=== PATIENT | male | born 1970 | race Caucasian/White ===

== ENCOUNTER → 2019-07-18 | Outpatient (CLI) | payer BC ==
[~2019-07-18] MED LIST: Flomax0.4 MG PO; HYDMOR2 PO; KETO10 PO; PRED20 PO; Percocet 5-3251 EACH PO
[2019-07-18 19:51] LABS: C-REACTIVE PROTEIN, EXT RANGE <0.290 mg/dL (0.000-0.300)
== END | disposition home or self-care (01) ==
LOC: LAB SHORT 17:52 → LAB 17:52
PROVIDERS: Nurse Practitioner Family
DX: M25.571 Pain in right ankle and joints of right foot (principal)
CPT/HCPCS: 84550; 85651; 86140

== ENCOUNTER 2021-06-19 09:10 | Day surgery (SDC) | payer BC ==
[~2021-06-19] VITALS: Ht 177.8 cm; Wt 110.2 kg
[~2021-06-19 09:10] MED LIST changes: +MULVITA; +Voltaren100 GM TOP
== END 2021-06-19 10:47 | disposition home or self-care (01) ==
LOC: ORSCSDS 09:10
PROVIDERS: Surgery
PROC: 0DBM8ZX Excision of Descending Colon, Via Natural or Artificial Opening Endoscopic, Diagnostic (ICD-10-PCS; principal; 2021-06-19 10:15)
PROC: 0DBN8ZX Excision of Sigmoid Colon, Via Natural or Artificial Opening Endoscopic, Diagnostic (ICD-10-PCS; principal; 2021-06-19 10:15)
DX: Z12.11 Encounter for screening for malignant neoplasm of colon (principal); D12.4 Benign neoplasm of descending colon; D12.5 Benign neoplasm of sigmoid colon; G47.33 Obstructive sleep apnea (adult) (pediatric); I10 Essential (primary) hypertension; F17.210 Nicotine dependence, cigarettes, uncomplicated; F41.9 Anxiety disorder, unspecified; E66.9 Obesity, unspecified; Z68.34 Body mass index [BMI] 34.0-34.9, adult
CPT/HCPCS: 88305; J2704; J7120

== ENCOUNTER → 2022-12-06 | Outpatient (CLI) | payer BC | LOC: LAB 15:30 → LAB SHORT 15:30 | DX: M54.9 Dorsalgia, unspecified (principal) | CPT/HCPCS: 87086 ==

== ENCOUNTER 2024-06-25 09:24 | Day surgery (SDC) | payer BC ==
[~2024-06-25] VITALS: Ht 177.8 cm; Wt 106.6 kg
[~2024-06-25 09:24] MED LIST changes: +Lactated Ringer's 1,000 ML IV ONE
[2024-06-25] MEDS ORDERED: Ropivacaine 0.5% HCL/PF 5 MG/ML 30ML Vial ONE (09:32)
[2024-06-25] MEDS ORDERED: FentaNYL Citrate 50 MCG/ML 2 ML Injection ONE (10:24)
[2024-06-25] MEDS ORDERED: Midazolam HCl 1MG / ML 2ML Vial ONE (10:24)
[2024-06-25] MEDS ORDERED: propofoL 20 ML IV ONE ×2 (10:24→11:21)
[2024-06-25] MEDS ORDERED: Lactated Ringer's 1,000 ML IV ONE (10:35)
[2024-06-25] MEDS ORDERED: CeFAZolin Sodium 2,000 MG VIAL ONE (10:41)
[2024-06-25] MEDS ORDERED: NS 50 ML IV ONE (10:42)
--- NOTE | 2024-06-25 11:37 | NUR ---
06/25/24 1137 Keyona Ghosh 0.15ML OF EPI ADDED TO ROPIVACAINE 0.5%(150MG/ML) TO MAKE ROPIVACAINE 0.5% WITH EPI 1:200,000 ON FIELD.
[2024-06-25] MEDS ORDERED: Ropivacaine 0.5% HCl/Pf 5 MG/ML 20ML VIAL INJ ONE ×2 (11:40)
[2024-06-25] MEDS ORDERED: EPINEPhrine HCl 1 MG/ML 1ML Amp XX ONE ×2 (11:41)
[2024-06-25 12:53] VITALS: BP 115/78
[2024-06-25] MEDS ORDERED: HYDROcodone 5-APAP 325 TAB ONE (12:55)
== END 2024-06-25 13:15 | disposition home or self-care (01) ==
LOC: ORSCSDS 09:24
PROVIDERS: Orthopaedic Surgery
PROC: 0JBH0ZX Excision of Left Lower Arm Subcutaneous Tissue and Fascia, Open Approach, Diagnostic (ICD-10-PCS; principal; 2024-06-25 11:00)
DX: D36.12 Benign neoplasm of peripheral nerves and autonomic nervous system, upper limb, including shoulder (principal); G47.33 Obstructive sleep apnea (adult) (pediatric); E66.9 Obesity, unspecified; Z68.33 Body mass index [BMI] 33.0-33.9, adult; F17.220 Nicotine dependence, chewing tobacco, uncomplicated
CPT/HCPCS: 88305; 88342; A9270; J0171; J0690; J2250; J2704; J2795; J3010; J7120